=== PATIENT | female | born 1955 | race Caucasian/White ===

== ENCOUNTER 2021-12-01 00:37 | Day surgery (SDC) | payer MEDICARE, OTHER ==
[~2021-12-01] VITALS: Wt 118.7 kg
[2021-12-01] MEDS ORDERED: AMLO5 PO (11:17)
[2021-12-01] MEDS ORDERED: CYCL10 PO (11:18)
[2021-12-01] MEDS ORDERED: CAND16 PO (11:18)
[2021-12-01] MEDS ORDERED: CELE200 PO (11:18)
[2021-12-01] MEDS ORDERED: VOLTAREN ARTHRI20 GM TOP (11:19)
[2021-12-01] MEDS ORDERED: ENBREL50 MG/1 M2 SC (11:20)
[2021-12-01] MEDS ORDERED: HYDSUL200 PO (11:20)
[2021-12-01] MEDS ORDERED: FOLI1 PO (11:20)
[2021-12-01] MEDS ORDERED: METTREX2.5 PO (11:21)
[2021-12-01] MEDS ORDERED: HYDHCL25 PO (11:21)
[2021-12-01] MEDS ORDERED: VENL75ER PO (11:22)
[2021-12-01] MEDS ORDERED: MINOCYCLINE HC100 M2 PO (11:22)
== END 2021-12-01 16:58 | disposition home or self-care (01) ==
LOC: ATC 00:37
DX: M05.79 Rheumatoid arthritis with rheumatoid factor of multiple sites without organ or systems involvement (principal)
CPT/HCPCS: 96413; 96415; A9270; J7050; Q5103

== ENCOUNTER 2021-12-15 00:48 | Day surgery (SDC) | payer MEDICARE, OTHER ==
[~2021-12-15] VITALS: Wt 119.4 kg
[~2021-12-15 00:48] MED LIST: AMLO5 PO; CAND16 PO; CELE200 PO; CYCL10 PO; ENBREL50 MG/1 M2 SC; FOLI1 PO; HYDHCL25 PO; HYDSUL200 PO; METTREX2.5 PO; MINOCYCLINE HC100 M2 PO; VENL75ER PO; VOLTAREN ARTHRI20 GM TOP
== END 2021-12-15 11:35 | disposition home or self-care (01) ==
LOC: ATC 00:48
DX: M05.79 Rheumatoid arthritis with rheumatoid factor of multiple sites without organ or systems involvement (principal)
CPT/HCPCS: 96413; 96415; A9270; J7050; Q5103

== ENCOUNTER 2022-01-12 00:43 | Day surgery (SDC) | payer MEDICARE, OTHER | END 2022-01-12 11:19 | disposition home or self-care (01) | LOC: ATC 00:43 | DX: M05.9 Rheumatoid arthritis with rheumatoid factor, unspecified (principal); Z79.899 Other long term (current) drug therapy; Z79.1 Long term (current) use of non-steroidal anti-inflammatories (NSAID) | CPT/HCPCS: 96413; 96415; A9270; J7050; Q5103 ==

== ENCOUNTER 2022-03-09 03:30 | Day surgery (SDC) | payer MEDICARE, OTHER | END 2022-03-09 11:42 | disposition home or self-care (01) | LOC: ATC 03:30 | DX: M05.79 Rheumatoid arthritis with rheumatoid factor of multiple sites without organ or systems involvement (principal); Z79.899 Other long term (current) drug therapy | CPT/HCPCS: A9270; J7050; Q5103 ==

== ENCOUNTER 2022-06-28 03:15 | Day surgery (SDC) | payer MEDICARE, OTHER ==
[~2022-06-28] VITALS: Wt 121.2 kg
[2022-06-28] MEDS ORDERED: PRED5 PO (08:58)
== END 2022-06-28 11:40 | disposition home or self-care (01) ==
LOC: ATC 03:15
DX: M05.9 Rheumatoid arthritis with rheumatoid factor, unspecified (principal); Z79.899 Other long term (current) drug therapy
CPT/HCPCS: 96413; 96415; A9270; J7050; Q5103

== ENCOUNTER 2022-08-23 01:52 | Day surgery (SDC) | payer MEDICARE, OTHER ==
[~2022-08-23] VITALS: Wt 124.3 kg
[~2022-08-23 01:52] MED LIST changes: +PRED5 PO
[2022-08-23] MEDS ORDERED: RENFLEXIS100 M1 IV (09:51)
== END 2022-08-23 12:05 | disposition home or self-care (01) ==
LOC: ATC 01:52
DX: M05.79 Rheumatoid arthritis with rheumatoid factor of multiple sites without organ or systems involvement (principal)
CPT/HCPCS: 96413; 96415; A9270; J7050; Q5103

== ENCOUNTER 2022-10-18 02:52 | Day surgery (SDC) | payer MEDICARE, OTHER ==
[~2022-10-18 02:52] MED LIST changes: +RENFLEXIS100 M1 IV
[2022-10-18 09:05] VITALS: BP 124/62
== END 2022-10-18 11:50 | disposition home or self-care (01) ==
LOC: ATC 02:52
DX: M05.79 Rheumatoid arthritis with rheumatoid factor of multiple sites without organ or systems involvement (principal); Z79.899 Other long term (current) drug therapy
CPT/HCPCS: 96413; 96415; A9270; J7050; Q5103

== ENCOUNTER 2022-12-13 03:01 | Day surgery (SDC) | payer MEDICARE, OTHER ==
[~2022-12-13 03:01] MED LIST changes: +SIMPONI100 MG/11 IV
[2022-12-13 09:40] VITALS: BP 113/59
== END 2022-12-13 10:45 | disposition home or self-care (01) ==
LOC: ATC 03:01
DX: M05.79 Rheumatoid arthritis with rheumatoid factor of multiple sites without organ or systems involvement (principal); Z79.899 Other long term (current) drug therapy
CPT/HCPCS: 96365; J1602

== ENCOUNTER 2023-02-07 02:20 | Day surgery (SDC) | payer MEDICARE, OTHER ==
[2023-02-07 09:02] VITALS: BP 131/81
== END 2023-02-07 10:04 | disposition home or self-care (01) ==
LOC: ATC 02:20
DX: M05.79 Rheumatoid arthritis with rheumatoid factor of multiple sites without organ or systems involvement (principal); Z79.899 Other long term (current) drug therapy
CPT/HCPCS: 96365; J1602

== ENCOUNTER 2023-04-04 05:01 | Day surgery (SDC) | payer MEDICARE, OTHER ==
[2023-04-04 09:00] VITALS: BP 133/65
== END 2023-04-04 10:20 | disposition home or self-care (01) ==
LOC: ATC 05:01
DX: M05.79 Rheumatoid arthritis with rheumatoid factor of multiple sites without organ or systems involvement (principal); Z79.899 Other long term (current) drug therapy; D84.821 Immunodeficiency due to drugs
CPT/HCPCS: 96365; J1602

== ENCOUNTER 2023-05-30 05:20 | Day surgery (SDC) | payer MEDICARE, OTHER ==
[2023-05-30 10:10] VITALS: BP 132/66
[2023-05-30] MEDS ORDERED: JANTOVEN5 M2 PO (10:13)
== END 2023-05-30 11:07 | disposition home or self-care (01) ==
LOC: ATC 05:20
DX: M05.79 Rheumatoid arthritis with rheumatoid factor of multiple sites without organ or systems involvement (principal); D84.821 Immunodeficiency due to drugs; Z79.899 Other long term (current) drug therapy
CPT/HCPCS: 96365; J1602

== ENCOUNTER 2023-07-25 02:55 | Day surgery (SDC) | payer MEDICARE, OTHER ==
[~2023-07-25 02:55] MED LIST changes: +JANTOVEN5 M2 PO
[2023-07-25 09:15] VITALS: BP 135/75
[2023-07-25] MEDS ORDERED: NS IV SCH (09:35)
[2023-07-25] MEDS ORDERED: GOLIMUMAB IV SCH (09:35)
== END 2023-07-25 11:00 | disposition home or self-care (01) ==
LOC: ATC 02:55
DX: M05.79 Rheumatoid arthritis with rheumatoid factor of multiple sites without organ or systems involvement (principal)
CPT/HCPCS: 96365; J1602

== ENCOUNTER 2023-09-19 04:29 | Day surgery (SDC) | payer MEDICARE, OTHER ==
[2023-09-19 09:05] VITALS: BP 133/70
[2023-09-19] MEDS ORDERED: TRAM50 PO (09:13)
[2023-09-19] MEDS ORDERED: NS IV SCH (09:20)
[2023-09-19] MEDS ORDERED: GOLIMUMAB IV SCH (09:20)
== END 2023-09-19 10:29 | disposition home or self-care (01) ==
LOC: ATC 04:29
DX: M05.79 Rheumatoid arthritis with rheumatoid factor of multiple sites without organ or systems involvement (principal); D84.821 Immunodeficiency due to drugs; Z79.899 Other long term (current) drug therapy
CPT/HCPCS: 96365; J1602

== ENCOUNTER 2024-03-31 01:20 | Day surgery (SDC) | payer MEDICARE, OTHER ==
[~2024-03-31 01:20] MED LIST changes: +TRAM50 PO
[2024-03-31] MEDS ORDERED: TOCILIZUMAB IV SCH (06:00)
[2024-03-31] MEDS ORDERED: NS IV SCH (06:00)
[2024-03-31 14:32] VITALS: BP 114/74
== END 2024-03-31 15:47 | disposition home or self-care (01) ==
LOC: ATC 01:20
DX: M05.79 Rheumatoid arthritis with rheumatoid factor of multiple sites without organ or systems involvement (principal); G89.4 Chronic pain syndrome; Z79.899 Other long term (current) drug therapy
CPT/HCPCS: 96365; J3262

== ENCOUNTER 2024-04-30 02:35 | Day surgery (SDC) | payer MEDICARE, OTHER ==
[~2024-04-30] VITALS: Wt 138.3 kg
[2024-04-30] MEDS ORDERED: NS IV SCH (06:00)
[2024-04-30] MEDS ORDERED: TOCILIZUMAB IV SCH (06:00)
[2024-04-30 10:25] VITALS: BP 144/73
== END 2024-04-30 12:08 | disposition home or self-care (01) ==
LOC: ATC 02:35
DX: M05.79 Rheumatoid arthritis with rheumatoid factor of multiple sites without organ or systems involvement (principal); G89.4 Chronic pain syndrome; M81.0 Age-related osteoporosis without current pathological fracture; M35.00 Sjogren syndrome, unspecified; Z79.01 Long term (current) use of anticoagulants; Z79.1 Long term (current) use of non-steroidal anti-inflammatories (NSAID); Z79.83 Long term (current) use of bisphosphonates; Z79.899 Other long term (current) drug therapy
CPT/HCPCS: 96365; J3262

== ENCOUNTER 2024-05-28 04:26 | Day surgery (SDC) | payer MEDICARE, OTHER ==
[2024-05-28 15:14] VITALS: BP 142/92
[2024-05-28] MEDS ORDERED: TOCILIZUMAB IV SCH (15:20)
[2024-05-28] MEDS ORDERED: NS IV SCH (15:20)
== END 2024-05-28 17:13 | disposition home or self-care (01) ==
LOC: ATC 04:26
DX: M05.79 Rheumatoid arthritis with rheumatoid factor of multiple sites without organ or systems involvement (principal); G89.4 Chronic pain syndrome; M81.0 Age-related osteoporosis without current pathological fracture; Z86.711 Personal history of pulmonary embolism; Z79.01 Long term (current) use of anticoagulants; Z79.1 Long term (current) use of non-steroidal anti-inflammatories (NSAID); Z79.83 Long term (current) use of bisphosphonates; Z79.899 Other long term (current) drug therapy; Z88.6 Allergy status to analgesic agent; Z88.8 Allergy status to other drugs, medicaments and biological substances
CPT/HCPCS: 96365; J3262

== ENCOUNTER 2024-07-01 05:41 | Day surgery (SDC) | payer MEDICARE, OTHER ==
[2024-07-01 10:30] VITALS: BP 133/74
[2024-07-01] MEDS ORDERED: Tocilizumab 800 MG in NS 60 ML IV SCH (10:35)
== END 2024-07-01 12:01 | disposition home or self-care (01) ==
LOC: ATC 05:41
DX: M05.79 Rheumatoid arthritis with rheumatoid factor of multiple sites without organ or systems involvement (principal); G89.4 Chronic pain syndrome; M81.0 Age-related osteoporosis without current pathological fracture; Z79.83 Long term (current) use of bisphosphonates; Z79.899 Other long term (current) drug therapy
CPT/HCPCS: 96365; J3262

== ENCOUNTER 2024-08-06 08:55 | Day surgery (SDC) | payer MEDICARE, OTHER ==
[~2024-08-06 08:55] MED LIST changes: +Tocilizumab 800 MG in NS 60 ML IV SCH
[2024-08-06 14:25] VITALS: BP 132/80
== END 2024-08-06 16:55 | disposition home or self-care (01) ==
LOC: ATC 08:55
DX: M05.79 Rheumatoid arthritis with rheumatoid factor of multiple sites without organ or systems involvement (principal); K50.00 Crohn's disease of small intestine without complications; G89.4 Chronic pain syndrome; R26.89 Other abnormalities of gait and mobility; M81.0 Age-related osteoporosis without current pathological fracture; Z79.01 Long term (current) use of anticoagulants; Z79.899 Other long term (current) drug therapy
CPT/HCPCS: 96365; J3262

== ENCOUNTER 2024-09-03 04:06 | Day surgery (SDC) | payer MEDICARE, OTHER ==
[~2024-09-03] VITALS: Wt 134.5 kg
[~2024-09-03 04:06] MED LIST changes: -Tocilizumab 800 MG in NS 60 ML IV SCH
[2024-09-03] MEDS ORDERED: Tocilizumab 800 MG in NS 60 ML IV SCH (06:00)
[2024-09-03 15:12] VITALS: BP 161/115
[2024-09-03] MEDS ORDERED: DULO60 PO (15:12)
[2024-09-03] MEDS ORDERED: GABA300 PO (15:14)
== END 2024-09-03 17:15 | disposition home or self-care (01) ==
LOC: ATC 04:06
DX: M05.79 Rheumatoid arthritis with rheumatoid factor of multiple sites without organ or systems involvement (principal); G89.29 Other chronic pain; M81.0 Age-related osteoporosis without current pathological fracture; Z79.899 Other long term (current) drug therapy
CPT/HCPCS: 96365; J3262

== ENCOUNTER 2024-10-07 02:55 | Day surgery (SDC) | payer MEDICARE, OTHER ==
[~2024-10-07] VITALS: Wt 133.4 kg
[~2024-10-07 02:55] MED LIST changes: +DULO60 PO; +GABA300 PO
[2024-10-07] MEDS ORDERED: Tocilizumab 800 MG in NS 60 ML IV SCH (06:00)
[2024-10-07 09:05] VITALS: BP 128/83
== END 2024-10-07 10:35 | disposition home or self-care (01) ==
LOC: ATC 02:55
DX: M05.79 Rheumatoid arthritis with rheumatoid factor of multiple sites without organ or systems involvement (principal); Z79.899 Other long term (current) drug therapy; Z79.01 Long term (current) use of anticoagulants
CPT/HCPCS: 96365; J3262

== ENCOUNTER 2024-11-05 00:30 | Day surgery (SDC) | payer MEDICARE, OTHER ==
[2024-11-05] MEDS ORDERED: Tocilizumab 800 MG in NS 60 ML IV SCH (06:00)
[2024-11-05 11:20] VITALS: BP 148/78
[2024-11-05] MEDS ORDERED: ELIQUIS5 M2 PO (11:30)
== END 2024-11-05 12:50 | disposition home or self-care (01) ==
LOC: ATC 00:30
DX: M05.79 Rheumatoid arthritis with rheumatoid factor of multiple sites without organ or systems involvement (principal); G89.4 Chronic pain syndrome; Z79.01 Long term (current) use of anticoagulants; Z79.899 Other long term (current) drug therapy
CPT/HCPCS: 96365; J3262

== ENCOUNTER 2024-12-03 01:31 | Day surgery (SDC) | payer MEDICARE, OTHER ==
[~2024-12-03] VITALS: Wt 132.1 kg
[~2024-12-03 01:31] MED LIST changes: +ELIQUIS5 M2 PO
[2024-12-03 11:10] VITALS: BP 135/74
== END 2024-12-03 12:30 | disposition home or self-care (01) ==
LOC: ATC 01:31
DX: M05.79 Rheumatoid arthritis with rheumatoid factor of multiple sites without organ or systems involvement (principal); G89.4 Chronic pain syndrome; M25.511 Pain in right shoulder; M25.512 Pain in left shoulder; R26.89 Other abnormalities of gait and mobility; M81.0 Age-related osteoporosis without current pathological fracture; D84.821 Immunodeficiency due to drugs; Z79.01 Long term (current) use of anticoagulants; Z79.631 Long term (current) use of antimetabolite agent; Z79.83 Long term (current) use of bisphosphonates; Z79.899 Other long term (current) drug therapy
CPT/HCPCS: 96365; J3262

== ENCOUNTER 2024-12-31 08:32 | Day surgery (SDC) | payer MEDICARE, OTHER ==
[2024-12-31 10:12] VITALS: BP 142/79
== END 2024-12-31 11:42 | disposition home or self-care (01) ==
LOC: ATC 08:32
DX: M05.79 Rheumatoid arthritis with rheumatoid factor of multiple sites without organ or systems involvement (principal); G89.4 Chronic pain syndrome; M25.511 Pain in right shoulder; M25.512 Pain in left shoulder; M81.0 Age-related osteoporosis without current pathological fracture; D84.821 Immunodeficiency due to drugs; Z79.631 Long term (current) use of antimetabolite agent; Z79.83 Long term (current) use of bisphosphonates; Z79.899 Other long term (current) drug therapy; Z79.01 Long term (current) use of anticoagulants
CPT/HCPCS: 96365; J3262

== ENCOUNTER → 2025-01-19 | Outpatient (CLI) | payer MEDICARE, OTHER ==
[2025-01-19 19:44] LABS: BASOPHILS ABSOLUTE AUTO 0.02 K/mm3 (0.00-0.23); BASOPHILS PERCENT AUTO 1 % (0-2); EOSINOPHILS ABSOLUTE AUTO 0.18 K/mm3 (0.00-0.68); EOSINOPHILS PERCENT AUTO 6 % (0-6); Hematocrit 37.8 % (33.0-51.0); Hemoglobin 12.8 g/dL (11.5-16.0); IMMATURE GRAN ABSOLUTE AUTO 0.01 K/mm3 (0.00-0.10); IMMATURE GRAN PERCENT AUTO 0 % (0-1); LYMPHOCYTES ABSOLUTE AUTO 1.52 K/mm3 (0.84-5.20); LYMPHOCYTES PERCENT AUTO 47 % (21-46); MONOCYTES ABSOLUTE AUTO 0.31 K/mm3 (0.16-1.47); MONOCYTES PERCENT AUTO 10 % (4-13); Mean Corpuscular HGB Conc 33.9 g/dL (31.5-36.5); Mean Corpuscular Volume 96 fL (80-100); NEUTROPHILS ABSOLUTE AUTO 1.22 K/mm3 (1.96-9.15); NEUTROPHILS PERCENT AUTO 38 % (41-73); NRBC ABSOLUTE 0.00 K/mm3 (0.00-0.02); NRBC Auto 0.0 /100 WBC (0.0-0.2); Platelet Count 151 K/mm3 (150-400); RDW Coefficient Variation 11.9 % (11.7-14.2); RDW Standard Deviation 41.6 fL (35.1-46.3)
[2025-01-19 20:23] LABS: Alanine Aminotransfer (ALT/SGP 24.0 U/L (12-78); Albumin, Blood 3.6 g/dL (3.4-5.0); Albumin/Globulin Ratio 1.0 (0.8-1.8); Anion Gap 8.0 mmol/L (3-11); Aspartate Aminotrans (AST/SGOT 31.0 U/L (12-37); Bilirubin, Total 0.5 mg/dL (0.1-1.0); Blood Urea Nitrogen 21.0 mg/dL (8-24); CO2, Blood 28.0 mmol/L (21-32); Calcium, Blood 9.3 mg/dL (8.5-10.1); Chloride, Blood 104.0 mmol/L (98-108); Creatinine, Blood 1.42 mg/dL (0.40-1.00); Globulin, Blood 3.7 g/dL (2.2-4.0); Glucose, Blood 88.0 mg/dL (70-99); Potassium, Blood 4.7 mmol/L (3.5-5.5); Sodium, Blood 135.0 mmol/L (136-145); Total Protein, Blood 7.3 g/dL (6.4-8.2)
== END | disposition home or self-care (01) ==
LOC: LAB SHORT 19:30 → LAB 19:30
PROVIDERS: Family Medicine
DX: R42 Dizziness and giddiness (principal)
CPT/HCPCS: 80053; 85025; 87086

== ENCOUNTER 2025-02-11 00:17 | Day surgery (SDC) | payer MEDICARE, OTHER ==
[2025-02-11 15:58] VITALS: BP 152/77
== END 2025-02-11 17:23 | disposition home or self-care (01) ==
LOC: ATC 00:17
DX: M05.79 Rheumatoid arthritis with rheumatoid factor of multiple sites without organ or systems involvement (principal); Z79.899 Other long term (current) drug therapy; Z79.01 Long term (current) use of anticoagulants
CPT/HCPCS: 96365; J3262

== ENCOUNTER 2025-03-12 08:09 | Day surgery (SDC) | payer MEDICARE, OTHER ==
[~2025-03-12] VITALS: Wt 131.3 kg
[2025-03-12 10:07] VITALS: BP 138/76
== END 2025-03-12 11:29 | disposition home or self-care (01) ==
LOC: ATC 08:09
DX: M05.79 Rheumatoid arthritis with rheumatoid factor of multiple sites without organ or systems involvement (principal); G89.4 Chronic pain syndrome; M81.0 Age-related osteoporosis without current pathological fracture; Z79.83 Long term (current) use of bisphosphonates; Z79.899 Other long term (current) drug therapy
CPT/HCPCS: 96365; J3262

== ENCOUNTER 2025-04-23 01:06 | Day surgery (SDC) | payer MEDICARE, OTHER ==
[~2025-04-23] VITALS: Wt 130.0 kg
[2025-04-23 10:14] VITALS: BP 132/81
[2025-04-23] MEDS ORDERED: ACTEMRA (10:22)
== END 2025-04-23 11:33 | disposition home or self-care (01) ==
LOC: ATC 01:06
DX: M05.79 Rheumatoid arthritis with rheumatoid factor of multiple sites without organ or systems involvement (principal)
CPT/HCPCS: 96413; J3262

== ENCOUNTER 2025-05-21 02:15 | Day surgery (SDC) | payer MEDICARE, OTHER ==
[~2025-05-21] VITALS: Wt 128.0 kg
[~2025-05-21 02:15] MED LIST changes: +ACTEMRA
[2025-05-21 16:05] VITALS: BP 138/90
== END 2025-05-21 17:30 | disposition home or self-care (01) ==
LOC: ATC 02:15
DX: M05.79 Rheumatoid arthritis with rheumatoid factor of multiple sites without organ or systems involvement (principal); M81.0 Age-related osteoporosis without current pathological fracture; G89.4 Chronic pain syndrome
CPT/HCPCS: 96365; J3262